=== PATIENT | male | born 1995 | race Caucasian/White ===

== ENCOUNTER 2017-12-12 21:58 | Emergency (ER) | payer OTHER ==
--- NOTE | 2017-12-12 23:00 | NUR ---
informed by admitting "pt tio"
== END 2017-12-12 23:01 | disposition left against medical advice (07) ==
LOC: ER 21:58
DX: Z53.21 Procedure and treatment not carried out due to patient leaving prior to being seen by health care provider (principal)

== ENCOUNTER 2017-12-13 12:48 | Emergency (ER) | payer OTHER ==
[~2017-12-13] VITALS: Ht 177.8 cm; Wt 77.6 kg
[2017-12-13 13:32] VITALS: BP 121/65
--- NOTE | 2017-12-13 15:06 | NUR ---
Patient discharged to home in stable condition. Written and verbal after care instructions along with Rx given. Patient verbalizes understanding of instruction. VSS upon discharge.
== END 2017-12-13 14:47 | disposition home or self-care (01) ==
LOC: ER 12:49
DX: R21 Rash and other nonspecific skin eruption (principal)
CPT/HCPCS: A4606; Z7610